=== PATIENT | female | born 1940 | race Two or more races ===

== ENCOUNTER 2020-10-22 14:35 | Inpatient (IN) | payer OTHER ==
[~2020-10-22] VITALS: Ht 165.1 cm; Wt 68.6 kg
[2020-10-22] MEDS ORDERED: SODIUM CHLORIDE 0.9% 1,000 ML IV ONE (14:45)
[2020-10-22 15:12] LABS: Basophils # (auto) 0.1 10 ^3/uL (0-0.2); Basophils % (auto) 1.3 % (0.0-2.0); Eosinophils # (auto) 0.1 10 ^3/uL (0-0.8); Eosinophils % (auto) 1.7 % (0.0-7.0); Hemoglobin 11.7 g/dL (12.2-16.2); Lymphocytes # (auto) 3.1 10 ^3/uL (0.4-5.4); Lymphocytes % (auto) 36.6 % (10.0-50.0); Mean Corpuscular Hemoglobin 32.4 pg (28.0-32.0); Mean Corpuscular Hgb Conc. 34.5 g/dL (32.0-36.0); Monocytes # (auto) 0.7 10 ^3/uL (0-1.3); Neutrophils # (auto) 4.4 10 ^3/uL (1.6-8.6); Neutrophils % (auto) 52.4 % (37.0-80.0); Platelet Count (auto) 439 10^3/uL (140-450); Red Blood Cells 3.62 10^6/uL (4.0-5.20); Red Cell Distribution Width 12.5 % (11.8-14.3); White Blood Cell 8.4 10^3/uL (4.4-10.8)
[2020-10-22 15:30] LABS: Albumin 4.4 g/dL (3.4-5.0); Anion Gap 14 (5-15); Blood Urea Nitrogen 43 mg/dL (7-18); Calcium 10.5 mg/dL (8.5-10.1); Carbon Dioxide 14 mmol/L (21-32); Chloride 108 mmol/L (98-107); Glucose 120 mg/dL (74-106); Potassium 4.3 mmol/L (3.5-5.1); Sodium 136 mmol/L (136-145)
[2020-10-22 15:35] LABS: Alanine Aminotransferase 21 U/L (13-56); Alkaline Phosphatase 36 U/L (45-117); Aspartate Aminotransferase 13 U/L (15-37); BUN/Creatinine Ratio 28.7; Bilirubin, Total 0.5 mg/dL (0.2-1.0); GFR African American 43 mL/min; GFR Non-African American 35 mL/min; Total Protein 7.3 g/dL (6.4-8.2)
[2020-10-22 15:44] LABS: INR 1.03 (0.9-1.15); Partial Thromboplastin Time 22.4 sec (23.0-31.2)
[2020-10-22] MEDS ORDERED: ONDANSETRON HCL 4 MG/2 ML VIAL IV PRN (18:00)
[2020-10-22] MEDS ORDERED: NITROGLYCERIN 0.4 MG SL TAB SL PRN (18:00)
[2020-10-22] MEDS ORDERED: MORPHINE SULF INJ 2 MG/ML SYRINGE 1ML IV PRN ×2 (18:00)
[2020-10-22] MEDS ORDERED: HYDROcodone-ACET 5/325MG TAB PO PRN (18:00)
[2020-10-22] MEDS: SODIUM CHLORIDE 0.9% 1,000 ML IV SCH (18:19)
[2020-10-22 18:33] LABS: Urine Bacteria FEW /hpf (None Seen); Urine Blood Negative /uL (Negative); Urine Hyaline Cast FEW /lpf (0 - 2); Urine Specific Gravity 1.008 (1.001-1.035); Urine Sperm PRESENT /hpf (None Seen); Urine WBC <1 /hpf (0 - 5)
[2020-10-22 18:47] LABS: Cholesterol 105 mg/dL (< 200)
[2020-10-22 18:50] LABS: HDL Cholesterol 41 mg/dL (40-59); LDL Cholesterol 44 mg/dL (< 100); Triglycerides 125 mg/dL (< 150)
[2020-10-22 21:46] VITALS: BP 141/62
[2020-10-22 22:28] VITALS: BP 141/62
[2020-10-23] MEDS: SODIUM CHLORIDE 0.9% 1,000 ML IV SCH ×4 (04:00→23:20)
[2020-10-23] MEDS: LABETALOL HCL 5 MG/ML 4ML SYRINGE IV PRN ×3 (04:49→21:33)
[2020-10-23 05:00] VITALS: BP 161/58
[2020-10-23 07:02] LABS: Potassium 3.7 mmol/L (3.5-5.1)
[2020-10-23 07:10] LABS: Albumin 3.8 g/dL (3.4-5.0); BUN/Creatinine Ratio 27.6; Bilirubin, Total 0.4 mg/dL (0.2-1.0); Calcium 9.5 mg/dL (8.5-10.1); Total Protein 6.8 g/dL (6.4-8.2)
[2020-10-23 08:00] VITALS: BP 137/63
[2020-10-23] MEDS: ACETAMINOPHEN 500 MG TAB PO PRN ×2 (08:23→16:33)
[2020-10-23 08:43] VITALS: BP 137/63
[2020-10-23] MEDS ORDERED: ATOR20TA50 PO (09:04)
[2020-10-23] MEDS ORDERED: FURO1TAB33 PO (09:04)
[2020-10-23] MEDS ORDERED: HYDR50TA15 PO (09:04)
[2020-10-23] MEDS ORDERED: ALPR0.254 PO (09:04)
[2020-10-23] MEDS ORDERED: LOSA-39 PO (09:04)
[2020-10-23] MEDS ORDERED: AMLO-489 PO (09:04)
[2020-10-23] MEDS ORDERED: PANT40TA2 PO (09:04)
[2020-10-23] MEDS ORDERED: TRAM50TA2 PO (09:04)
[2020-10-23] MEDS ORDERED: HYDR12.56 PO (09:04)
[2020-10-23] MEDS ORDERED: CARV12.544 PO (09:04)
[2020-10-23] MEDS ORDERED: METF-370 PO (09:04)
[2020-10-23] MEDS ORDERED: SPIR25TA8 PO (09:04)
[2020-10-23] MEDS: amLODIPine BESYLATE 5 MG TAB PO SCH (09:44)
[2020-10-23] MEDS: FAMOTIDINE 20 MG TAB PO SCH (09:44)
[2020-10-23 12:30] VITALS: BP 157/63
[2020-10-23 16:45] VITALS: BP 135/64
[2020-10-23] MEDS ORDERED: DEXTROSE (50%) 50ML SYRG IV ONE (21:30)
[2020-10-23 22:00] VITALS: BP 173/56
[2020-10-23] MEDS ORDERED: ACCU-CHEK COMFORT CURVE STRIP VI ONE (22:00)
[2020-10-23] MEDS ORDERED: InsuLIN REG 1unit/0.01ml Soln (100units/ml) SC ONE (22:00)
[2020-10-23] MEDS: CARVEDILOL 3.125 MG TAB PO SCH (22:00)
[2020-10-23] MEDS: ALPRAZolam 0.5 MG TAB PO PRN (22:20)
[2020-10-24 00:36] VITALS: BP 140/60
[2020-10-24] MEDS: SODIUM CHLORIDE 0.9% 1,000 ML IV SCH ×2 (04:17→20:10)
[2020-10-24 05:00] VITALS: BP 152/81
[2020-10-24 05:36] LABS: Basophils # (auto) 0 10 ^3/uL (0-0.2); Basophils % (auto) 0.6 % (0.0-2.0); Eosinophils # (auto) 0.1 10 ^3/uL (0-0.8); Eosinophils % (auto) 1.8 % (0.0-7.0); Hematocrit 30.5 % (36.0-46.0); Hemoglobin 10.8 g/dL (12.2-16.2); Lymphocytes # (auto) 2.7 10 ^3/uL (0.4-5.4); Lymphocytes % (auto) 37.7 % (10.0-50.0); Mean Corpuscular Hemoglobin 32.8 pg (28.0-32.0); Mean Corpuscular Hgb Conc. 35.4 g/dL (32.0-36.0); Mean Corpuscular Volume 92.6 fL (80.0-100.0); Monocytes # (auto) 0.7 10 ^3/uL (0-1.3); Monocytes % (auto) 9.6 % (0.0-12.0); Neutrophils # (auto) 3.6 10 ^3/uL (1.6-8.6); Neutrophils % (auto) 50.3 % (37.0-80.0); Nucleated Red Blood Cells % 0.1 %; Platelet Count (auto) 371 10^3/uL (140-450); Red Blood Cells 3.29 10^6/uL (4.0-5.20); Red Cell Distribution Width 12.6 % (11.8-14.3); White Blood Cell 7.1 10^3/uL (4.4-10.8)
[2020-10-24 05:53] LABS: Albumin 3.9 g/dL (3.4-5.0); Calcium 9.5 mg/dL (8.5-10.1); Potassium 3.4 mmol/L (3.5-5.1)
[2020-10-24 05:56] LABS: BUN/Creatinine Ratio 18.7; Bilirubin, Total 0.3 mg/dL (0.2-1.0); Total Protein 6.7 g/dL (6.4-8.2)
[2020-10-24] MEDS: LABETALOL HCL 5 MG/ML 4ML SYRINGE IV PRN (06:34)
[2020-10-24 09:00] VITALS: BP 157/69
[2020-10-24 10:25] LABS: Folate (Folic Acid) 20.46 ng/mL (5.38-24)
[2020-10-24] MEDS: ATORVASTATIN 20 MG TAB PO SCH (10:49)
[2020-10-24] MEDS: FAMOTIDINE 20 MG TAB PO SCH (10:49)
[2020-10-24] MEDS: CARVEDILOL 3.125 MG TAB PO SCH ×2 (10:50→22:14)
[2020-10-24] MEDS: amLODIPine BESYLATE 5 MG TAB PO SCH (10:50)
[2020-10-24] MEDS: ACETAMINOPHEN 500 MG TAB PO PRN (10:54)
[2020-10-24 13:00] VITALS: BP 154/96
[2020-10-24 17:00] VITALS: BP 151/64
[2020-10-24] MEDS: ALPRAZolam 0.5 MG TAB PO PRN (17:04)
[2020-10-24 21:59] VITALS: BP 157/67
[2020-10-25] MEDS: ALPRAZolam 0.5 MG TAB PO PRN (02:49)
[2020-10-25 05:00] VITALS: BP 154/72
[2020-10-25] MEDS: SODIUM CHLORIDE 0.9% 1,000 ML IV SCH ×2 (06:13→16:00)
[2020-10-25 09:00] VITALS: BP 137/85
[2020-10-25] MEDS ORDERED: CITALOPRAM HYDROBR 20 MG TAB PO SCH (10:00)
[2020-10-25] MEDS: CARVEDILOL 3.125 MG TAB PO SCH (10:20)
[2020-10-25] MEDS: ATORVASTATIN 20 MG TAB PO SCH (10:21)
[2020-10-25] MEDS: FAMOTIDINE 20 MG TAB PO SCH (10:22)
[2020-10-25] MEDS: amLODIPine BESYLATE 5 MG TAB PO SCH (10:22)
[2020-10-25] MEDS ORDERED: CAR3125T PO (10:42)
[2020-10-25] MEDS ORDERED: DEXTROSE (50%) 50ML SYRG IV PRN (10:45)
[2020-10-25 10:53] LABS: Albumin 3.8 g/dL (3.4-5.0); Calcium 9.7 mg/dL (8.5-10.1); Potassium 3.4 mmol/L (3.5-5.1)
[2020-10-25 10:58] LABS: BUN/Creatinine Ratio 8.9; Bilirubin, Total 0.5 mg/dL (0.2-1.0)
[2020-10-25] MEDS ORDERED: InsuLIN REG 1unit/0.01ml Soln (100units/ml) SC SCH (11:30)
[2020-10-25] MEDS ORDERED: ACCU-CHEK COMFORT CURVE STRIP VI SCH (11:30)
[2020-10-25 13:00] VITALS: BP 150/48
[2020-10-27 12:55] LABS: Folate (Folic Acid) 13.53 ng/mL (5.38-24)
== END 2020-10-25 16:55 | DRG 683 ==
LOC: EDBD 14:35 → ER 14:35 → TELE 17:55 → TELE-WESTW 20:36 → TELE-CENTR 10-24 00:36
PROVIDERS: ADMIT Nurse Practitioner Acute Care; ATTEND Internal Medicine
DX: N17.9 Acute kidney failure, unspecified (principal); R64 Cachexia; E83.52 Hypercalcemia; F03.90 Unspecified dementia, unspecified severity, without behavioral disturbance, psychotic disturbance, mood disturbance, and anxiety; Z20.822 Contact with and (suspected) exposure to COVID-19; E11.22 Type 2 diabetes mellitus with diabetic chronic kidney disease; E78.5 Hyperlipidemia, unspecified; I70.8 Atherosclerosis of other arteries; K57.30 Diverticulosis of large intestine without perforation or abscess without bleeding; R29.6 Repeated falls; I10 Essential (primary) hypertension; I67.2 Cerebral atherosclerosis; F17.200 Nicotine dependence, unspecified, uncomplicated; F41.9 Anxiety disorder, unspecified; Z79.899 Other long term (current) drug therapy; Z80.0 Family history of malignant neoplasm of digestive organs; Z82.49 Family history of ischemic heart disease and other diseases of the circulatory system; Z87.440 Personal history of urinary (tract) infections; Z90.49 Acquired absence of other specified parts of digestive tract; Z90.710 Acquired absence of both cervix and uterus; Z79.84 Long term (current) use of oral hypoglycemic drugs; Z88.5 Allergy status to narcotic agent; Z88.1 Allergy status to other antibiotic agents; Z68.22 Body mass index [BMI] 22.0-22.9, adult
CPT/HCPCS: 36415; 70450; 71045; 74176; 80053; 80061; 81001; 82306; 82607; 82746; 82962; 83036; 83970; 84443; 84484; 85025; 85610; 85730; 87426; 93005; 95819; 96360; 96361; 97116; 97530; G0378; J1815; J3490